=== PATIENT | female | born 1970 | race Caucasian/White ===

== ENCOUNTER 2019-12-09 12:52 | Emergency (ER) | payer SELFPAY ==
[~2019-12-09] VITALS: Ht 154.9 cm; Wt 68.0 kg
[~2019-12-09 12:52] MED LIST: ASPIRIN81 MG ORAL; AZITHROMYCIN250 MG ORAL; CIPROFLOXACIN500 M2 ORAL; HYDROCHLOROTH12.5 M2 ORAL; INSULIN SQ; KEFLEX500 MG ORAL; LEVAQUIN500 MG ORAL; METFORMIN HCL500 M1 ORAL; OMEPRAZOLE20 M2 ORAL; PROMETHAZINE-D118 ML ORAL; TYLENOL EXTRA500 MG ORAL
[2019-12-09] MEDS ORDERED: PRAVASTATIN SOD20 M1 ORAL (13:06)
--- NOTE | 2019-12-09 13:12 | NUR ---
ED Nurse Note: Patient walked into ED c/o cough x 1 week with abdominal pain, chills, and body aches x 4 days. Patient currently afebrile, denies n/v/d/. Patient denies recent travel. Patient states she had Covid-19 test yesterday but has not received the results yet. Patient AxOx 4, no s/s of acute distress. Breathing even and unlabored.
[2019-12-09 13:15] VITALS: BP 145/71
--- NOTE | 2019-12-09 13:35 | NUR ---
ED Nurse Note: 20 g IV started in right AC, blood collected and sent to lab
[2019-12-09 13:46] VITALS: BP 145/71
[2019-12-09 14:08] LABS: ANION GAP 7 mmol/L (5-15); BLOOD UREA NITROGEN 13 mg/dL (7-18); CALCIUM 9.8 MG/DL (8.5-10.1); CARBON DIOXIDE 31 MMOL/L (21-32); CHLORIDE 101 MMOL/L (98-107); CREATININE 0.8 MG/DL (0.55-1.30); POTASSIUM 4.2 MMOL/L (3.5-5.1); SODIUM 139 MMOL/L (136-145)
[2019-12-09 14:15] LABS: BASOPHILS % (AUTO) 0.9 % (0.0-2.0); EOSINOPHILS % (AUTO) 0.7 % (0.0-3.0); HEMATOCRIT 45.4 % (37.0-47.0); HEMOGLOBIN 15.1 G/DL (12.0-16.0); LYMPHOCYTES % (AUTO) 27.8 % (20.0-45.0); MEAN CORPUSCULAR VOLUME 87 FL (80-99); MONOCYTES % (AUTO) 4.4 % (1.0-10.0); NEUTROPHILS % (AUTO) 66.2 % (45.0-75.0); PLATELET COUNT 230 K/UL (150-450); RED BLOOD COUNT 5.22 M/UL (4.20-5.40); RED CELL DISTRIBUTION WIDTH 11.7 % (11.6-14.8); WHITE BLOOD COUNT 10.8 K/UL (4.8-10.8)
[2019-12-09 14:18] LABS: ALANINE AMINOTRANSFERASE 40 U/L (12-78); ALBUMIN 4.1 G/DL (3.4-5.0); ALBUMIN/GLOBULIN RATIO 0.9 (1.0-2.7); ALKALINE PHOSPHATASE 104 U/L (46-116); ASPARTATE AMINO TRANSFERASE 22 U/L (15-37); BILIRUBIN,TOTAL 0.3 MG/DL (0.2-1.0)
--- NOTE | 2019-12-09 14:21 | NUR ---
ED Nurse Note: Urine sent to lab
--- NOTE | 2019-12-09 14:28 | Diagnostic Imaging Report ---
EXAM: XR Chest, 1 View CLINICAL HISTORY: SOB TECHNIQUE: Frontal view of the chest. COMPARISON: Chest radiograph on 01/17/2015 FINDINGS: Hardware: None. Lungs/pleura: Low lung volumes. Patchy opacities in the mid and lower lungs. No pleural effusion or pneumothorax. Heart/mediastinum: Mild enlargement of the cardiac silhouette which may be accentuated by low lung volumes. Soft tissues: Unremarkable. Bones: No acute fracture. Upper abdomen: Normal. IMPRESSION: Low lung volumes. Patchy opacities in the mid and lower lungs may represent atelectasis versus pneumonia.
[2019-12-09 14:48] LABS: BILIRUBIN, URINE NEGATIVE (NEGATIVE); COLOR,URINE PALE YELLOW; GLUCOSE, URINE (UA) 3+ (NEGATIVE); KETONES,URINE NEGATIVE (NEGATIVE); LEUKOCYTE ESTERASE ,URINE NEGATIVE (NEGATIVE); NITRITE,URINE NEGATIVE (NEGATIVE); PH,URINE 6 (4.5-8.0); PROTEIN,URINE NEGATIVE (NEGATIVE); UROBILINOGEN,URINE NORMAL MG/DL (0.0-1.0)
[2019-12-09 14:50] LABS: APPEARANCE,URINE CLEAR
[2019-12-09] MEDS ORDERED: PROMETHAZI6.25 MG/1 ORAL (14:58)
[2019-12-09] MEDS ORDERED: ZITHROMAX250 MG ORAL (14:58)
[2019-12-09] MEDS ORDERED: PREDNISONE20 MG ORAL (14:58)
--- NOTE | 2019-12-09 14:58 | Emergency Room Report ---
History of Present Illness General Chief Complaint: Abdominal Pain Source: Patient, Medical Record Present Illness HPI 49-year-old female with history of type 2 diabetes currently insulin-dependent and taking metformin with new onset of glaucoma pending ophthalmology visit in 2 weeks as well as hypertension currently controlled medication here complaining of 1 week of cough with phlegm production and posttussive emesis. Complains of minor nausea and epigastric pain posttussive. Denies any diarrhea , chest pain and shortness of breath at this time. Reports that she is currently taking Robitussin for cough with minimal relief. Denies loss of taste and smell. Complains of congestion as well as fever and chills and body aches. Denies coming contact with someone who is positive for COVID. Patient had a couple test yesterday with pending results. Vital signs are within normal limits. Patient is afebrile O2 sat within normal limits. Also complains of 2 days of urinary frequency and urgency without hematuria or suprapubic pain or flank pain Allergies: Coded Allergies: No Known Allergies (Unverified , 03/30/13) COVID-19 Screening Contact w/high risk pt: No Experienced COVID-19 symptoms?: Yes COVID-19 Testing performed MATERIAL ASSISTANT: Yes - pending result COVID-19 Screening: PUI COVID-19 COVID-19 Testing Source: unknown Patient History Past Medical History: see triage record Past Surgical History: none Pertinent Family History: none Now: No Immunizations: UTD Reviewed Nursing Documentation: PMH: Agreed; PSxH: Agreed Nursing Documentation-PMH Past Medical History: No History, Except For Hx Cardiac Problems: Yes Hx Hypertension: Yes Hx Diabetes: Yes Hx Cancer: No Hx Gastrointestinal Problems: No Hx Neurological Problems: No Review of Systems All Other Systems: negative except mentioned in HPI Physical Exam Vital Signs Date Time Temp Pulse Resp B/P (MAP) Pulse Ox O2 Delivery O2 Flow Rate FiO2 12/09/19 12:55 97.9 96 18 145/71 (95) 98 Room Air Sp02 EP Interpretation: reviewed, normal Head: normocephalic, atraumatic Eyes: bilateral eye normal inspection, bilateral eye PERRL ENT: hearing grossly normal, normal pharynx, no angioedema, normal voice Neck: full range of motion, supple/symm/no masses Respiratory: chest non-tender, lungs clear, normal breath sounds, no rhonchi, no retraction, speaking full sentences Cardiovascular #1: regular rate, rhythm, no edema Gastrointestinal: normal bowel sounds, non tender, soft, non-distended, no guarding, no rebound Rectal: deferred Genitourinary: no CVA tenderness Musculoskeletal: back normal Neurologic: alert, motor strength/tone normal, oriented x3, sensory intact, responsive, speech normal Psychiatric: judgement/insight normal, memory normal, mood/affect normal, no suicidal/homicidal ideation Skin: no rash Lymphatic: no adenopathy Medical Decision Making PA Attestation All my diagnosis and treatment plans were reviewed ad discussed with my supervising physician Dr. Devi Diagnostic Impression: Primary Impression: Community acquired pneumonia ER Course 49-year-old female with history of type 2 diabetes currently insulin-dependent and taking metformin with new onset of glaucoma pending ophthalmology visit in 2 weeks as well as hypertension currently controlled medication here complaining of 1 week of cough with phlegm production and posttussive emesis. Complains of minor nausea and epigastric pain posttussive. Denies any diarrhea , chest pain and shortness of breath at this time. Reports that she is currently taking Robitussin for cough with minimal relief. Denies loss of taste and smell. Complains of congestion as well as fever and chills and body aches. Denies coming contact with someone who is positive for COVID. Patient had a couple test yesterday with pending results. Vital signs are within normal limits. Patient is afebrile O2 sat within normal limits. Also complains of 2 days of urinary frequency and urgency without hematuria or suprapubic pain or flank pain Ddx considered but are not limited to: bronchitis, PNA, URI viral, bacterial bronchitis , coronavirus Vital signs: are WNL, pt. is afebrile H&PE are most consistent with: PNA mostly secondary to coronavirus ORDERS: Chest x-ray, CBC, CMP, UA, troponin, Phenergan, azithromycin, Macrobid ED INTERVENTIONS: NS bolus, Phenergan, Pepcid DISCHARGE: At this time pt. is stable for d/c to home. Will provide printed patient care instructions, and any necessary prescriptions. Care plan and follow up instructions have been discussed with the patient prior to discharge. Patient to self isolate for 2 weeks, if worsening symptoms return to emergency room. Advised on proning in order to feel better at night. Chest X-Ray Diagnostic Results Chest X-Ray Diagnostic Results : Chest X-Ray Ordered: Yes # of Views/Limited/Complete: 1 View Indication: Shortness of Breath EP Interpretation: Yes PA Xray: Interpretation reviewed, by supervising MD, and agrees with findings. Interpretation: no effusion, no pneumothorax, other - Patchy opacities right lower lobe Impression: Other - Pneumonia right lower lobe Electronically Signed by: Ada GUSMAN Scribalan Text FINDINGS: Hardware:None. Lungs/pleura: Lowlung volumes. Patchyopacities in the mid and lower lungs. No pleural effusion or pneumothorax. Heart/mediastinum: Mild enlargement of the cardiac silhouette which maybe accentuated bylowlung volumes. Soft tissues:Unremarkable. Bones:No acute fracture. Upper abdomen:Normal. IMPRESSION: Lowlung volumes. Patchyopacities in the mid and lower lungs mayrepresent atelectasis versus pneumonia. Last Vital Signs Date Time Temp Pulse Resp B/P (MAP) Pulse Ox O2 Delivery O2 Flow Rate FiO2 12/09/19 13:46 97.9 82 18 145/71 98 Room Air Disposition: HOME, SELF-CARE Condition: Stable Scripts Nitrofurantoin Monohyd/M-Cryst* (MACROBID 100 MG*) 100 Mg Capsule 100 MG ORAL EVERY 12 HOURS for 7 Days, #14 CAP Prov: Ada Coelho 12/09/19 Azithromycin* (ZITHROMAX*) 250 Mg Tablet 250 MG ORAL DAILY, #6 TAB 0 Refills Take two tables once daily for 1 day, then one tablet once daily for 4 days. Prov: Ada Coelho 12/09/19 Promethazine Hcl (PROMETHAZINE HCL*) 6.25 Mg/5 Ml Syrup 5 ML ORAL Q8H, #120 ML 0 Refills Prov: Ada Coelho 12/09/19 Referrals: NOT CHOSEN IPA/,REFERRING (PCP) Patient Instructions: Community-Acquired Pneumonia, Adult, [id number] Additional Instructions: Take medication as directed, follow-up with your primary care provider, stay at home for the next 14 days, if worsening symptoms return to the emergency room Ada Coelho Dec 09, 2019 14:58
[2019-12-09 15:20] VITALS: BP 141/75
--- NOTE | 2019-12-09 15:20 | NUR ---
ER DISCHARGE NOTE: Patient is cleared to be discharged per ERMD, pt is aox4, on room air, with stable vital signs. pt was given dc and prescription instructions, pt was able to verbalize understanding, pt id band and iv site removed without complications. pt is able to ambulate with steady gait. pt took all belongings.
[2019-12-09] MEDS ORDERED: NITROFURANTOIN100 M2 ORAL ×2 (15:45→16:13)
== END 2019-12-09 15:20 | disposition home or self-care (01) ==
LOC: EMR 13:09
DX: J18.9 Pneumonia, unspecified organism (principal); I10 Essential (primary) hypertension; E11.9 Type 2 diabetes mellitus without complications; Z79.4 Long term (current) use of insulin
CPT/HCPCS: 36415; 71045; 80053; 80307; 81003; 81025; 83690; 84484; 85025; 96361; 96374; 96375; 99284; J2550; J7030; S0028; J2405